=== PATIENT | female | born 1955 | race Caucasian/White ===

== ENCOUNTER → 2016-08-12 | Outpatient (CLI) | payer BC ==
[~2016-08-12] MED LIST: GADOBUTROL 10 ML VIAL IVP ONE
== END ==
LOC: FIMAGING 14:55
PROVIDERS: ATTEND Physical Medicine & Rehabilitation
DX: M54.2 Cervicalgia (principal); M50.31 Other cervical disc degeneration, high cervical region; M50.33 Other cervical disc degeneration, cervicothoracic region; Z98.1 Arthrodesis status
CPT/HCPCS: A9585

== ENCOUNTER 2018-02-13 13:13 | Emergency (ER) | payer BC ==
--- NOTE | 2018-02-13 14:01 | EDPHY ---
H & P Stated Complaint: states dx with afib /htn feeling shaky Time Seen by Provider: 02/13/18 14:00 HPI/ROS: CHIEF COMPLAINT: Palpitations, high blood pressure, shakiness HISTORY OF PRESENT ILLNESS: The patient is a 62 y/o female with a history of atrial fibrillation, hypertension, and anxiety arriving with her complaining of palpitations, high blood pressure, and shakiness. While undergoing surgery for a wrist fracture in December she went into atrial fibrillation. At the time she was on Bystolic for hypertension and was switched her to metoprolol to hopefully treat her hypertension and atrial fibrillation concurrently until she could see a logistics engineer. Since then she's had a Holter monitor and her metoprolol dose adjusted from 25mg BID to 75mg BID. Last month she had two sinus pauses so her metoprolol was lowered to 25mg daily. On , 2 days ago, she followed up with her logistics engineer and they ultimately opted to stop metoprolol and start her on 50mg Losartan instead and refer her to Dr. Hawkins for electrophysiology consult. She feels like this is not working and when her blood pressure is high she feels shaky and lightheaded. She has near-constant awareness of a "bounding" heart rate that is currently present. She says, "it's scary and I don't know if I'm panicking or what, I don't know what the difference is." She denies chest pain, leg swelling, calf tenderness, dyspnea, vomiting, abdominal pain, urinary symptoms. No anticoagulants or aspirin currently. REVIEW OF SYSTEMS: A ten system review of systems was performed and is negative with the exception of the items mentioned in the HPI. Past medical history: atrial fibrillation, hypertension, anxiety - Clonazepam Past surgical history: left knee replacement Family history: Noncontributory Social history: at bedside. Lives in [place]. Former smoker. 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 No alcohol use. 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 Boubacar Delarosa General Appearance: Alert. Vital signs reviewed. Blood pressure 155/99. Eyes: Pupils equal and round, no conjunctival injection, no discharge. Anicteric. ENT, Mouth: Mucous membranes are moist, no oropharyngeal erythema or edema. Neck: No lymphadenopathy, supple. Respiratory: Lungs are clear to auscultation; no wheezes, rales, or rhonchi. Cardiovascular: Regular rate and rhythm; no murmur, rub, or gallop. Gastrointestinal: Abdomen is soft and nontender, no masses or organomegaly. Skin: Warm and dry, no rashes on exposed skin, normal color. Back: Nontender to palpation over the thoracolumbar spine. No CVAT. Extremities: No lower extremity edema, no calf tenderness or swelling. Neurological: Alert and oriented. Moving all four extremities easily and equally. Psychiatric: Normal affect. - Personal History Current Tetanus Diphtheria and Acellular Pertussis (TDAP): No - Medical/Surgical History Hx Asthma: No Hx Chronic Respiratory Disease: No Hx Diabetes: No Hx Cardiac Disease: Yes Hx Renal Disease: No Hx Cirrhosis: No Hx Alcoholism: No Hx HIV/AIDS: No Hx Splenectomy or Spleen Trauma: No Other PMH: afib/htn total l knee replacement/fx r wrist/ ACDF - Social History Smoking Status: Former smoker Constitutional: Initial Vital Signs Temperature (C) 36.6 C 02/13/18 13:15 Heart Rate 84 02/13/18 13:15 Respiratory Rate 18 02/13/18 13:15 Blood Pressure 155/99 H 02/13/18 13:15 O2 Sat (%) 97 02/13/18 13:15 O2 Delivery Mode Room Air Allergies/Adverse Reactions: No Known Allergies Allergy (Unverified 02/13/18 13:14) Home Medications: Medication Instructions Recorded CLONAZEPAM 02/13/18 Lexapro 02/13/18 Losartan Potassium 02/13/18 Medical Decision Making - Diagnostics Imaging: Discussed imaging studies w/ airborne sensor specialist Radiologist, I viewed and interpreted images myself ED Course/Re-evaluation: This is a 62 y/o female with a history of anxiety, hypertension, and recent development of atrial fibrillation during an orthopedic surgery this fall who presents complaining primarily of a persistent "bounding" heart rate that she is constantly aware of as well as concerns about the efficacy of the antihypertensive her logistics engineer recently switched her to. She describes feeling lightheaded and shaky when her blood pressure is high. No report of chest pain. Her exam is unremarkable. Plan for IV, labs, EKG, chest x-ray, and symptomatic management. 1mg PO Ativan ordered. The 12 lead EKG was interpreted by myself. Sinus mechanism rate 76, PAC. See hard copy and/or [place] electronic copy for interpretation. Consulted with Dr. Hawkins, logistics engineer. He is familiar with the patient and does not recommend beta blockers at all due to multiple sinus pauses recorded while on the metoprolol. His office will contact her Thursday to schedule a follow up appointment. Chest x-ray: negative. D-dimer elevated at 1.47. Reassessed patient and discussed findings. She is feeling improved after the Ativan. Her current BP is 140/90. Discussed chest CTA due to elevated d-dimer, which she agrees to. Chest CTA is negative for PE. Reassessed patient and discussed findings. She feels ready for discharge home. She understands she needs to follow up with Dr. Hawkins and that his office should call her Thursday to schedule this appointment. Standard care and follow up instructions given. Return precautions discussed. Differential Diagnosis: DDX including but not limited to PE, anxiety, arrhythmia, ACS, thyroid abnormality. - Data Points Laboratory Results: Laboratory Results 02/13/18 13:50 02/13/18 13:50 Medications Given: Discontinued Medications Lorazepam (Ativan Injection) 1 mg IVP EDNOW ONE Stop: 02/13/18 14:18 Last Admin: 02/13/18 14:52 Dose: 1 mg Departure - Departure Disposition: Home, Routine, Self-Care Clinical Impression: Palpitations Hypertension Qualifiers: Hypertension type: essential hypertension Qualified Code(s): I10 - Essential ( primary) hypertension Condition: Good Instructions: Heart Palpitations (DC) Additional Instructions: 1. Continue medications as prescribed. 2. Dr. Hawkins's office should call you Thursday to schedule a follow up appointment. Please call them if you do not hear back by the end of the day. 3. Return to the ED for any worsening of condition. Referrals: Edwina Grullon [Primary Care Provider] - As per Instructions Rolf Hawkins MD [Medical Doctor] - As per Instructions Report Scribed for: Maritza Mcginnis Report Scribed by: Lisseth Jay Date of Report: 02/13/18 Time of Report: 14:46 Physician Review and Approval Statement: 02/13/18 14:01 Portions of this note were transcribed by the medical tech. I, Dr. Maritza Mcginnis, personally performed the history, physical exam, and medical decision- making; and confirmed the accuracy of the information in the transcribed note.
[2018-02-13] MEDS ORDERED: LORazepam 2 MG/ML INJ IVP ONE (14:17)
[2018-02-13 14:34] LABS: PLATELET COUNT 214 10^3/uL (150-400)
[2018-02-13] MEDS ORDERED: IOPAMIDOL (ISOVUE 370) 100 ML BTL IV ONE (15:07)
--- NOTE | 2018-02-13 15:29 | CPEKG ---
Test Reason : OPEN Blood Pressure : / mmHG Vent. Rate : 076 BPM Atrial Rate : 074 BPM P-R Int : 153 ms QRS Dur : 109 ms QT Int : 372 ms P-R-T Axes : 058 -19 -03 degrees QTc Int : 419 ms Sinus rhythm Atrial premature complex Left ventricular hypertrophy Confirmed by Nimisha Mena ([id number]) on 02/13/2018 3:28:18 PM Referred By: Confirmed By:Nimisha Mena
[2018-02-13 16:09] VITALS: BP 144/72
== END 2018-02-13 16:08 | disposition home or self-care (01) ==
DX: R00.2 Palpitations (principal); I10 Essential (primary) hypertension
CPT/HCPCS: 96374; J2060; Q9967